=== PATIENT | female | born 1940 | race Caucasian/White ===

== ENCOUNTER → 2016-05-03 13:41 | Outpatient (CLI) | payer MEDICARE, BC ==
[2015-08-22 11:31] VITALS: BMI 25.5
[~2016-05-03 13:41] MED LIST: FISH OIL 1,0001 CA1 PO; FLECAINIDE ACET50 MG PO; IBUPROFEN200 MG PO; MULTI-DAY VITAM1 TAB PO; OYST-CAL-5001 TAB PO; PERCOCET 10/3251 TA1 PO; PLAVIX75 MG PO
== END | disposition home or self-care (01) ==
LOC: D.CT 13:30
DX: G45.9 Transient cerebral ischemic attack, unspecified (principal)

== ENCOUNTER → 2017-01-29 12:23 | Outpatient (CLI) | payer MEDICARE, BC ==
[2015-08-22 11:31] VITALS: BMI 25.5
== END | disposition home or self-care (01) ==
LOC: D.MAMMO 11:30
DX: Z12.31 Encounter for screening mammogram for malignant neoplasm of breast (principal)

== ENCOUNTER 2018-12-10 08:00 | Outpatient (CLI) | payer MEDICARE, BC ==
[2015-08-22 11:31] VITALS: BMI 25.5
== END 2018-12-10 23:59 | disposition home or self-care (01) ==
LOC: D.MAMMO 08:00
PROVIDERS: ATTEND Family Medicine
DX: Z12.31 Encounter for screening mammogram for malignant neoplasm of breast (principal)